=== PATIENT | male | born 1955 | race Caucasian/White ===

== ENCOUNTER 2018-07-19 05:44 | Day surgery (SDC) | payer MEDICAID ==
[2018-07-19] MEDS ORDERED: Meropenem 500 MG in Sodium Chloride 0.9% 50 ML IV ONE (06:27)
[2018-07-19] MEDS ORDERED: Dextrose 5%-Lactated Ringers 1,000 ML IV SCH (06:45)
[2018-07-19] MEDS ORDERED: fentaNYL 100 MCG/2 ML SDV ONE (07:13)
[2018-07-19] MEDS ORDERED: Midazolam 1 MG/ML 2 ML SDV ONE (07:13)
[2018-07-19] MEDS ORDERED: Propofol 200 MG/20 ML SDV ONE (07:13)
[2018-07-19] MEDS ORDERED: Glycopyrrolate 0.2 MG/ML 2 ML SDV ONE (08:19)
[2018-07-19 09:35] VITALS: BP 136/73
--- NOTE | 2018-07-22 13:14 | OR ---
DATE OF PROCEDURE: 07/19/2018 PREOPERATIVE DIAGNOSIS: Indications for screening colonoscopy. POSTOPERATIVE DIAGNOSIS: Single small polyp in the sigmoid colon (40 cm). PROCEDURE: Flexible colonoscopy with polypectomy by snare technique ([id number]). ANESTHESIA: IV sedation. INDICATION FOR PROCEDURE: This is a 62-year-old male, presenting for a screening colonoscopy. Plan is to proceed with a flexible colonoscopy with biopsies and/or polypectomy as indicated. Potential risks including bleeding and perforation were discussed, and the patient wishes to proceed. DETAILS OF PROCEDURE: The patient was taken to the operating room and placed in a left lateral decubitus position. IV sedation was administered, after which the initial digital rectal exam was performed and was unremarkable. The colonoscope was then passed into the rectum with retroflexion revealing uncomplicated hemorrhoidal columns. The scope was then eventually passed to the level of the cecum. The prep was fairly good with there only being a small amount of liquid stool present. The only abnormality noted was that of a small roughly 3 mm polyp located in the mid sigmoid, i.e. around 40 cm from the dentate line. This was encircled at its base with a snare and cauterized off and then evacuated and sent for histologic evaluation. Good hemostasis was noted at the cauterized site in the colon, and the scope was then withdrawn, procedure concluded. The patient was taken to the recovery room in satisfactory condition. The plan will be to await the pathology report. If this is a hyperplastic polyp, the next colonoscopy could probably be in 10 years. If it is an adenomatous polyp of some sort, he should have a repeat colonoscopy in 2 years. Noe Bean MD Job #: [id number]
== END 2018-07-19 09:48 | disposition home or self-care (01) ==
LOC: JP.SDS 05:44
PROVIDERS: ATTEND Surgery
DX: Z12.11 Encounter for screening for malignant neoplasm of colon (principal); D12.5 Benign neoplasm of sigmoid colon; I10 Essential (primary) hypertension; E66.9 Obesity, unspecified; I48.91 Unspecified atrial fibrillation
CPT/HCPCS: 45385; J2185; J2250; J2704; J3010; J3490; J7042; J7050; 88305; 88341; 88342

== ENCOUNTER 2021-05-05 11:26 | Emergency (ER) | payer MEDICAID ==
[2021-05-05 11:43] VITALS: BP 144/85; PULSE 89
--- NOTE | 2021-05-05 12:37 | EDM.PDOC ---
ED HPI GENERAL MEDICAL PROBLEM - General Chief Complaint: Cardiovascular Problem Stated Complaint: AFIB Time Seen by Provider: 05/05/21 12:15 Source of Information: Reports: Patient, RN Notes Reviewed History Limitations: Reports: No Limitations - History of Present Illness INITIAL COMMENTS - FREE TEXT/NARRATIVE: 65-year-old gentleman presents emergency department day complaint of atrial fibrillation, he has a known history of paroxysmal atrial fibrillation usually goes in about 4 times per year with spontaneous conversion has used Cardizem in the past to help control his rate. For this particular event he has been atrial fibrillation for the last 3 days his rate has been controlled under 110 but he remains in atrial fibrillation. He is only symptomatic when he runs or exerts himself he feels short of breath - Related Data Allergies Allergy/AdvReac Type Severity Reaction Status Date / Time No Known Allergies Allergy Verified 05/05/21 11:51 Home Meds: Home Meds Amoxicillin 2,000 mg PO ASDIRECTED PRN 07/17/18 [History] Diltiazem HCl [Cardizem LA] 120 mg PO DAILY PRN #30 tab.sr.24h 05/05/21 [Rx] Naproxen 500 mg PO DAILY 05/05/21 [History] Past Medical History HEENT History: Reports: None Cardiovascular History: Reports: Afib, Hypertension Gastrointestinal History: Reports: GERD Musculoskeletal History: Reports: None Neurological History: Reports: Concussion Psychiatric History: Reports: Anxiety - Infectious Disease History Infectious Disease History: Reports: Chicken Pox, Measles, Mumps - Past Surgical History HEENT Surgical History: Reports: Oral Surgery, Tonsillectomy Cardiovascular Surgical History: Reports: None GI Surgical History: Reports: Colonoscopy Neurological Surgical History: Reports: None Musculoskeletal Surgical History: Reports: Arthroscopic Knee, Hip Replacement, Knee Replacement Social & Family History - Family History Family Medical History: No Pertinent Family History - Tobacco Use Tobacco Use Status *Q: Never Tobacco User - Caffeine Use Caffeine Use: Reports: Coffee - Recreational Drug Use Recreational Drug Use: No ED ROS GENERAL - Review of Systems Review Of Systems: See Below Constitutional: Reports: No Symptoms HEENT: Reports: No Symptoms Respiratory: Reports: No Symptoms Cardiovascular: Reports: Dyspnea on Exertion, Palpitations GI/Abdominal: Reports: No Symptoms ED EXAM, GENERAL - Physical Exam Exam: See Below Exam Limited By: No Limitations General Appearance: Alert, WD/WN, No Apparent Distress Respiratory/Chest: No Respiratory Distress Cardiovascular: Irregularly Irregular Course - Vital Signs Last Recorded V/S: Last Vital Signs Temp 98.4 F 05/05/21 11:46 Pulse 89 05/05/21 11:46 Resp 16 05/05/21 11:46 BP 144/85 H 05/05/21 11:46 Pulse Ox 99 05/05/21 11:46 Departure - Departure Time of Disposition: 12:36 Disposition: Home, Self-Care 01 Condition: Fair Clinical Impression: Atrial fibrillation Qualifiers: Atrial fibrillation type: paroxysmal Qualified Code(s): I48.0 - Paroxysmal atrial fibrillation Prescriptions: Diltiazem HCl [Cardizem LA] 120 mg PO DAILY PRN #30 tab.sr.24h PRN Reason: Other Instructions: Atrial Fibrillation, [id number] Referrals: Kathy Casillas PA [Primary Care Provider] - Additional Instructions: Pres[facility] for Card[facility]em [email or web address], continue to use them this medication to help control your rate, please follow-up with your primary care in the next 7 to 10 days for reevaluation if not better call return to the emergency department for worsening of symptoms, if you persist in atrial fibrillation please follow-up with cardiology sooner. Sepsis Event Note (ED) - Evaluation Sepsis Screening Result: No Definite Risk - Focused Exam Vital Signs: Vital Signs Temp Pulse Resp BP Pulse Ox 05/05/21 11:46 98.4 F 89 16 144/85 H 99 05/05/21 11:42 98.4 F 89 16 144/85 H 99 - Assessment/Plan Plan: Assessment Acuity = acute Site and laterality = atrial fibrillation probably converting to persistent Etiology = unknown Manifestations = dyspnea on exertion Location of injury = Home Lab values = none Plan Because he is greater than 48 hours and he is not anticoagulated he is not a candidate for cardioversion. His Johnny vas score is 1 I recommend he did take at least an aspirin because of the atrial fibrillation I offered him further evaluation blood work to see if there is any abnormality that could be corrected he declined. He is going to continue to use the Cardizem as he has been rate controlled with that and see if he will spontaneously convert prescription was refilled sent to [facility] pharmacy. He has a follow-up appointment with his cardiology in 1 month This note was dictated using [employer] voice recognition software please call with any questions on syntax or grammar.
== END 2021-05-05 12:43 | disposition home or self-care (01) ==
LOC: JP.ED 11:26
DX: I48.0 Paroxysmal atrial fibrillation (principal); I10 Essential (primary) hypertension
CPT/HCPCS: 99284